=== PATIENT | female | born 1960 | race Caucasian/White ===

== ENCOUNTER 2023-12-31 19:30 | Emergency (ER) | payer OTHER ==
[2023-12-31] MEDS ORDERED: HYDROCODONE/APAP 5/325 MG TAB ONE ×2 (20:17→20:55)
--- NOTE | 2023-12-31 20:57 | RAD REPORT ---
EXAM DESCRIPTION: RAD - Ankle Left 3 View -12/31/2023 8:44 pm CLINICAL HISTORY: Left ankle pain status post injury FINDINGS: Soft tissue swelling lateral malleolus. Curvilinear lucency within the lateral malleolus probably a nondisplaced fracture. Prominent trabecul a considered somewhat less likely No dislocation
--- NOTE | 2023-12-31 20:58 | ER ---
Nurse's Notes [facility] Name: Rosaura Pro Age: 63 yrs Sex: Female : 1960 Arrival Date: 12/31/2023 Time: 19:30 Bed 9 Private MD: Diagnosis: Right patella fracture, ground-level fall, left ankle sprain Presentation: 12/30 19:46 Chief complaint: Patient states: pt had a trip and fall today while holding her dog. pt as6 c/o right knee pain and left ankle pain. Coronavirus screen: At this time, the client does not indicate any symptoms associated with coronavirus-19. Ebola Screen: No symptoms or risks identified at this time. Initial Sepsis Screen: Does the patient meet any 2 criteria? No. Patient's initial sepsis screen is negative. Does the patient have a suspected source of infection? No. Patient's initial sepsis screen is negative. Risk Assessment: Do you want to hurt yourself or someone else? Patient reports no desire to harm self or others. Onset of symptoms was December 31, 2023. 19:46 Acuity: YO 4 as6 19:46 Method Of Arrival: Wheelchair as6 Historical: - Allergies: 19:48 Codeine; as6 - PMHx: 19:48 Diverticulitis; High Cholesterol; Hypertension; as6 - PSHx: 19:48 kidney (Hypertension); section; Cholecystectomy; as6 - Immunization history:: Adult Immunizations up to date. - Infectious Disease History:: Denies. - Social history:: Smoking status: Patient denies any tobacco usage or history of. Screenin:26 [facility] ED Fall Risk Assessment (Adult) History of falling in the last 3 months, nj1 including since admission Yes- single mechanical fall (1 pt) Confusion or Disorientation No (0 pts) Intoxicated or Sedated No (0 pts) Impaired Gait Yes (1 pt) Mobility Assist Device Used Yes (1 pt) Altered Elimination No (0 pt) Score/Fall Risk Level 3 or more points = High Risk Oriented to surroundings, Maintained a safe environment, Hourly rounding (assess needs \T\ fall precautionary measures) done. Abuse screen: Denies threats or abuse. Denies injuries from another. Nutritional screening: No deficits noted. Tuberculosis screening: No symptoms or risk factors identified. Assessment: 20:15 General: Appears in no apparent distress. uncomfortable, Behavior is calm, cooperative, nj1 appropriate for age. 20:15 Pain: Complains of pain in right knee and left lateral ankle Pain currently is 4 out of nj1 10 on a pain scale. Aggravated by increased activity, repositioning, weight bearing. Neuro: Level of Consciousness is awake, alert, obeys commands, Oriented to person, place, time, situation. Cardiovascular: Patient's skin is warm and dry. Respiratory: Airway is patent Respiratory effort is even, unlabored. Musculoskeletal: Reports pain in right knee and left lateral ankle. Musculoskeletal: Swelling present in right knee and left lateral ankle. Injury Description: Abrasion sustained to right knee. 21:15 Reassessment: Patient appears in no apparent distress at this time. Patient and/or jb4 family updated on plan of care and expected duration. Pain level reassessed. Patient is alert, oriented x 3, equal unlabored respirations, skin warm/dry/pink. D/c pending ride home. 22:58 Reassessment: Patient appears in no apparent distress at this time. Patient and/or jb4 family updated on plan of care and expected duration. Pain level reassessed. Patient is alert, oriented x 3, equal unlabored respirations, skin warm/dry/pink. verbalized and demonstrated understanding of crutch training. Vital Signs: 19:46 BP 186 / 82; Pulse 78; Resp 18; Temp 97.6; Pulse Ox 98% ; Weight 74.84 kg; Height 5 ft. as6 4 in. ; Pain 4/10; 19:46 Body Mass Index 28.32 (74.84 kg, 162.56 cm) as6 19:46 Pain Scale: Adult as6 ED Course: 19:32 Patient arrived in ED. jj6 19:46 Arm band placed on right wrist. as6 19:48 Triage completed. as6 20:00 Rajesh Bone MD is Attending Physician. sp3 20:14 Veronica Lopes, LAUREN is Primary Nurse. nj1 20:28 Patient has correct armband on for positive identification. Bed in low position. Call nj1 light in reach. Provided Education on: call light, fall precautions. 20:45 Knee Right 3 View XRAY In Process Unspecified. EDMS 20:46 Ankle Left 3 View XRAY In Process Unspecified. EDMS 20:55 Notified ED physician of other Pt complaining of nausea. nj1 20:57 Osito Johnson MD is Referral Physician. sp3 21:07 Report given to Wicho AGUILAR. nj1 22:58 No provider procedures requiring assistance completed. Patient did not have IV access jb4 during this emergency room visit. Administered Medications: 20:23 Drug: [place] PO 5 mg-325 mg 2 tabs PO once {Note: One tablet given, patient does not nj1 want second one.} Route: PO; 21:11 Drug: Ondansetron Oral Disintegrating Tablet Oral Disintegrating Tablet 4 mg PO once nj1 Route: PO; 22:21 Drug: Ketorolac IM 30 mg IM once Route: IM; Site: right deltoid; as6 Medication: 22:58 VIS not applicable for this client. jb4 Outcome: 20:58 Discharge ordered by . sp3 22:58 Discharged to home via wheelchair, with crutches, jb4 22:58 Condition: stable 22:58 Discharge instructions given to patient, Instructed on discharge instructions, follow up and referral plans. medication usage, crutch walking, wound care, Demonstrated understanding of instructions, follow-up care, medications, wound care, Prescriptions given X 1, 23:00 Patient left the ED. jb4 Signatures: Dispatcher [employer] EDFL Teo Cortez RN RN jb4 Rajesh Bone MD MD sp3 Ruthie Monroyj6 Delio Rizzo RN RN as6 Veronica Lopes RN RN nj1 Corrections: (The following items were deleted from the chart) 21:07 20:23 [place] PO 5 mg-325 mg 2 tabs PO nj1 nj1
--- NOTE | 2023-12-31 20:58 | RAD REPORT ---
EXAM DESCRIPTION: RAD - Knee Right 3 View - 12/31/2023 8:44 pm CLINICAL HISTORY: Right knee pain status post injury FINDINGS: Comminuted fracture mid patella. Separation of fracture fragments 1.9 centimeter. No dislocation Small moderate joint effusion
--- NOTE | 2023-12-31 20:58 | EDPHYS ---
Physician Documentation [facility] Name: Rosaura Pro Age: 63 yrs Sex: Female : 1960 Arrival Date: 12/31/2023 Time: 19:30 Bed 9 Private MD: ED Physician Rajesh Bone HPI: 12/30 20:16 This 63 yrs old Female presents to ER via Wheelchair with complaints of Fall Injury, sp3 Knee Pain, Leg Pain. 20:16 63-year-old female with history diverticulitis, hyperlipidemia, hypertension presents sp3 with mechanical ground-level fall just prior to arrival while try to get into her motor home while holding her dog. Patient states she has pain to the right knee and left ankle with overlying abrasion to the right knee. She denies head injury, neck pain, back injury or pain, chest injury or pain, shortness of breath, other extremity pain, abdominal pain, or any other signs or symptoms on ROS at this time. She denies any medical prodrome prior to the event.. Historical: - Allergies: 19:48 Codeine; as6 - PMHx: 19:48 Diverticulitis; High Cholesterol; Hypertension; as6 - PSHx: 19:48 kidney (Hypertension); section; Cholecystectomy; as6 - Immunization history:: Adult Immunizations up to date. - Infectious Disease History:: Denies. - Social history:: Smoking status: Patient denies any tobacco usage or history of. ROS: 20:17 Constitutional: Negative for fever, chills, and weight loss, Eyes: Negative for injury, sp3 pain, redness, and discharge, Neck: Negative for injury, pain, and swelling, Cardiovascular: Negative for chest pain, palpitations, and edema, Respiratory: Negative for shortness of breath, cough, wheezing, and pleuritic chest pain, Abdomen/GI: Negative for abdominal pain, nausea, vomiting, diarrhea, and constipation, Back: Negative for injury and pain, Skin: Negative for injury, rash, and discoloration, Neuro: Negative for headache, weakness, numbness, tingling, and seizure, Psych: Negative for depression, anxiety, suicide ideation, homicidal ideation, and hallucinations, Allergy/Immunology: Negative for hives, rash, and allergies, Endocrine: Negative for neck swelling, polydipsia, polyuria, polyphagia, and marked weight changes, Hematologic/Lymphatic: Negative for swollen nodes, abnormal bleeding, and unusual bruising, 20:17 All other systems are negative, Exam: 20:17 Constitutional: This is a well developed, well nourished patient who is awake, alert, sp3 and in no acute distress. Head/Face: Normocephalic, atraumatic. Neck: Trachea midline, no thyromegaly or masses palpated, and no cervical lymphadenopathy. Supple, full range of motion without nuchal rigidity, or vertebral point tenderness. No Meningismus. Chest/axilla: Normal chest wall appearance and motion. Nontender with no deformity. No lesions are appreciated. Cardiovascular: Regular rate and rhythm with a normal S1 and S2. No gallops, murmurs, or rubs. Normal PMI, no JVD. No pulse deficits. Respiratory: Lungs have equal breath sounds bilaterally, clear to auscultation and percussion. No rales, rhonchi or wheezes noted. No increased work of breathing, no retractions or nasal flaring. Abdomen/GI: Soft, non-tender, with normal bowel sounds. No distension or tympany. No guarding or rebound. No evidence of tenderness throughout. Back: No spinal tenderness. No costovertebral tenderness. Full range of motion. Skin: Warm, dry with normal turgor. Normal color with no rashes, no lesions, and no evidence of cellulitis. Neuro: Awake and alert, GCS 15, oriented to person, place, time, and situation. Cranial nerves II-XII grossly intact. Motor strength 5/5 in all extremities. Sensory grossly intact. Cerebellar exam normal. Normal gait. Psych: Awake, alert, with orientation to person, place and time. Behavior, mood, and affect are within normal limits. 20:17 Musculoskeletal/extremity: Right knee demonstrates moderate-sized effusion with no drawer laxity and pain to palpation to the tibial tuberosity and medial and lateral sides of the knee. Distal neurovascular exam is normal. Left ankle has mild pain to the lateral malleolus and small amount of swelling. Neurovascular exam is normal.. Vital Signs: 19:46 BP 186 / 82; Pulse 78; Resp 18; Temp 97.6; Pulse Ox 98% ; Weight 74.84 kg; Height 5 ft. as6 4 in. ; Pain 4/10; 19:46 Body Mass Index 28.32 (74.84 kg, 162.56 cm) as6 19:46 Pain Scale: Adult as6 MDM: 20:01 Patient medically screened. sp3 20:18 Data reviewed: vital signs, nurses notes, radiologic studies. ED course: 63-year-old sp3 with mechanical ground-level fall. Differential diagnosis includes fracture versus contusion versus sprain of the left ankle and right knee. Will obtain x-rays and if negative put a knee immobilizer on the right knee along with crutches. Follow-up with orthopedics is already in place as patient made an appointment earlier today for Saturday.. 20:57 ED course: X-ray demonstrates patella fracture. Will place knee immobilizer and sp3 discharge patient home on crutches with follow-up with Dr. Johnson on her already scheduled appointment. Tramadol for pain control will also be given.. 12/30 20:01 Order name: Knee Right 3 View XRAY; Complete Time: 20:59 sp3 12/30 20:01 Order name: Ankle Left 3 View XRAY; Complete Time: 20:59 sp3 12/30 20:48 Order name: Knee Immobilizer; Complete Time: 22:04 sp3 12/30 20:48 Order name: Crutch Training; Complete Time: 22:58 sp3 12/30 20:48 Order name: Wound Care; Complete Time: 22:05 sp3 Administered Medications: 20:23 Drug: [place] PO 5 mg-325 mg 2 tabs PO once {Note: One tablet given, patient does not nj1 want second one.} Route: PO; 21:11 Drug: Ondansetron Oral Disintegrating Tablet Oral Disintegrating Tablet 4 mg PO once nj1 Route: PO; 22:21 Drug: Ketorolac IM 30 mg IM once Route: IM; Site: right deltoid; as6 Disposition Summary: 12/31/23 20:58 Discharge Ordered Notes: Location: Home sp3 Condition: Stable sp3 Diagnosis - Right patella fracture, ground-level fall, left ankle sprain sp3 Followup: sp3 - With: Osito Johnson MD - When: Upon discharge from the Emergency Department - Reason: Re-evaluation by your physician Discharge Instructions: - Discharge Summary Sheet sp3 - Crutch Use, Adult sp3 - Patellar Fracture, Adult sp3 Forms: - Medication Reconciliation Form sp3 - Antibiotic Education sp3 - Prescription Opioid Use sp3 - Patient Portal Instructions sp3 - Leadership Thank You Letter sp3 Prescriptions: - Tramadol 50 mg Oral Tablet - take 1 tablet ORAL route every 8 hours as needed; 12 tablet; Refills: 0, sp3 Product Selection Permitted Signatures: Dispatcher [employer] Rajesh Farias MD MD sp3 Delio Rizzo RN RN as6 Veronica Lopes RN RN nj1
[2023-12-31] MEDS ORDERED: ONDANSETRON 4 MG (ODT) TAB ONE (21:06)
[2023-12-31] MEDS ORDERED: KETOROLAC 30 MG/ML INJ ONE (22:18)
[2023-12-31 23:09] VITALS: BP 186/82; TEMP 97.6; O2SAT 98
== END 2023-12-31 23:00 | disposition home or self-care (01) ==
LOC: ER 19:30
DX: S82.041A Displaced comminuted fracture of right patella, initial encounter for closed fracture (principal); S93.402A Sprain of unspecified ligament of left ankle, initial encounter; W18.30XA Fall on same level, unspecified, initial encounter
CPT/HCPCS: 73562; 73610; Q0162

== ENCOUNTER → 2024-01-08 | Day surgery (SDC) | payer OTHER ==
[2024-01-07 10:37] LABS: Absolute Eosinophils 0.2 K/uL (0-0.5); Absolute Lymphocytes (CBC) 1.8 K/uL (0.7-4.9); Absolute Monocytes 0.4 K/uL (0.1-1.3); Absolute Neutrophil 2.9 K/uL (1.8-8.0); Basophils % 0.7 % (0-1.3); Eosinophils % 3.2 % (0-4.4); Hematocrit 39.7 % (36.0-45.0); Hemoglobin 13.2 g/dL (12.0-15.0); Lymphocytes % 34.3 % (15.3-44.8); MCH 32.3 pg (27.0-35.0); MCHC 33.3 g/dL (32.0-36.0); MCV 96.9 fL (80-100); MPV 7.3 fL (7.6-11.3); Monocytes % 7.4 % (3.3-12.3); Neutrophils % 54.4 % (41.7-73.7); Platelets 296 thou/uL (152-406); Red Cell Distribution Width 12.9 % (12.1-15.2)
[2024-01-07 10:51] LABS: Anion Gap 6.7 mEq/L (5.0-15.0); Potassium 3.7 mEq/L (3.5-5.1)
--- NOTE | 2024-01-09 16:11 | EKG ---
Test Date: 2024-01-07 Test Time: 10:16:47 Thermometer Maker: HIREN MEASUREMENT RESULTS: Intervals: Rate: 75 HI: 168 QRSD: 88 QT: 366 QTc: 408 [place]: P: 67 HI: 168 QRS: 57 T: 70 INTERPRETIVE STATEMENTS: Normal sinus rhythm Septal infarct, age undetermined Abnormal ECG No previous ECG available for comparison Electronically Signed On 01-09-24 16:08:53 CDT by Geovany Rodrigues
== END ==
LOC: OR 09:24
PROVIDERS: ATTEND Orthopaedic Surgery
DX: S82.001A Unspecified fracture of right patella, initial encounter for closed fracture (principal); Z53.09 Procedure and treatment not carried out because of other contraindication
CPT/HCPCS: 36415; 80048; 85025; 93005

== ENCOUNTER 2024-03-13 06:25 | Day surgery (SDC) | payer OTHER ==
[2024-03-12 12:30] LABS: Absolute Eosinophils 0.2 K/uL (0-0.5); Absolute Lymphocytes (CBC) 2.7 K/uL (0.7-4.9); Absolute Monocytes 0.4 K/uL (0.1-1.3); Absolute Neutrophil 2.3 K/uL (1.8-8.0); Basophils % 0.6 % (0-1.3); Eosinophils % 3.6 % (0-4.4); Hematocrit 40.6 % (36.0-45.0); Hemoglobin 13.4 g/dL (12.0-15.0); Lymphocytes % 46.8 % (15.3-44.8); MCH 32.6 pg (27.0-35.0); MCV 98.7 fL (80-100); MPV 7.5 fL (7.6-11.3); Monocytes % 7.8 % (3.3-12.3); Neutrophils % 41.2 % (41.7-73.7); Platelets 258 thou/uL (152-406); RBC Red Blood Cell Count 4.11 M/uL (3.86-4.86); Red Cell Distribution Width 13.1 % (12.1-15.2)
[2024-03-12 12:47] LABS: Anion Gap 8.3 mEq/L (5.0-15.0); Potassium 4.3 mEq/L (3.5-5.1)
[2024-03-13] MEDS: Ringers Lactate 1,000 ML IV ONE (06:51)
[2024-03-13] MEDS ORDERED: FENTANYL CITR 100 MCG/2 ML ONE (06:54)
[2024-03-13] MEDS ORDERED: dexAMETHasone 10 MG/ML VIAL ONE ×2 (06:54→08:10)
[2024-03-13] MEDS ORDERED: LIDOCAINE 1% MPF 5 ML VIAL ONE ×2 (06:54→12:07)
[2024-03-13] MEDS ORDERED: EPINEPHRINE 1 MG/ML VIAL ONE ×2 (06:55→12:07)
[2024-03-13] MEDS ORDERED: MIDAZOLAM HCL 2 MG/2 ML INJ ONE ×2 (06:55→12:08)
[2024-03-13] MEDS ORDERED: LIDOCAINE 2% MPF 5 ML VIAL ONE (08:10)
[2024-03-13] MEDS ORDERED: propofoL 200 MG/20 ML VIAL IV ONE (08:10)
[2024-03-13] MEDS ORDERED: KETOROLAC 30 MG/ML INJ ONE (08:10)
[2024-03-13] MEDS ORDERED: ONDANSETRON 4 MG/2 ML VIAL ONE (08:10)
[2024-03-13] MEDS: CEFAZOLIN SODIUM 1 GM/VIAL ONE (08:30)
[2024-03-13] MEDS ORDERED: NS 0.9% VIAL 10 ML ONE ×2 (08:44→08:45)
[2024-03-13] MEDS: HYDROMORPHONE HCL 1 MG/ML INJ ONE (10:05)
[2024-03-13] MEDS: FENTANYL CITR 100 MCG/2 ML ONE (10:18)
[2024-03-13] MEDS: ONDANSETRON 4 MG/2 ML VIAL ONE (10:18)
[2024-03-13] MEDS ORDERED: HYDROCODONE/APAP 10/325 TAB ONE (10:46)
[2024-03-13] MEDS: HYDROCODONE/APAP 10/325 TAB PO ONE (10:55)
[2024-03-13] MEDS ORDERED: dexAMETHasone 4 MG/ML VIAL ONE (12:13)
[2024-03-13 16:49] VITALS: O2SAT 99
[2024-03-13 17:07] VITALS: BP 138/71; TEMP 98.1
--- NOTE | 2024-03-13 20:57 | OP ---
Date of Procedure: 03/13/2024 Surgeon: Osito Johnson MD Preoperative Diagnosis: Right patellar re-fracture with retained hardware. Postoperative Diagnosis: Right patellar re-fracture with retained hardware. Procedure: Right patellar hardware removal with partial patellectomy and repair of extensor mechanis m. Estimated Blood Loss: 20 cc. Complications: There were no complications. Specimens: No pathology specimens sent. Indications For Operation: Ms. Pro is a 64-year-old, who unfortunately sustained a transverse patellar fracture, which was treated approximately 8 weeks ago with open reduction and internal fixat ion using tension band wire technique. She did extremely well. She had near full range of motion. She had no pain. X-rays looked ideal with reestablishment of the articular surface and was cleared f or light activities. She unfortunately approximately a week after being cleared, fell on her knee ag ain and she came to see me in my office. X-rays were taken which demonstrated that she had refractur ed her patella and that the hardware had lost fixation because of fracture of the inferior pole. It was assumed that the inferior pole was highly comminuted and discussed with her risks, benefits, and alternatives of different methods of treating this including continued closed treatment, but she had very poor ability to perform a straight leg raise and the fracture fragments were displaced. Also, s he had retained hardware, which was not providing any fixation. Therefore, decision was made jointly to proceed with hardware removal and repair of the extensor mechanism probably to include partial pa tellectomy as it appears that the wires have broken out from the inferior pole of the patella. She s ays she understands everything as presented and knows that this is not the optimal way of fixing sebastian lla, but I think this is our option at this time, and she agrees to proceed. Description Of Procedure: The patient was taken to the operating room, placed in supine position. G eneral anesthesia was easily obtained by Anesthesia staff. Following this, a well-padded tourniquet was placed on superior right thigh. Right lower extremity was then prepped and draped in the usual s terile fashion for the procedure. Following this, the superior pole of patella is compressed as the knee is flexed fully and the tourniquet was raised. The previous incision was used with slightly mor e extensile superiorly and inferiorly. This led down to the scar tissue and great care was made to r etain full-thickness flaps of the soft tissues off the anterior surface of the patella. There was he matoma in this area demonstrated a new fracture as well as a slight rent in the medial soft tissue st ructures. The wires were more or less immediately visible inferiorly. The fracture site was examine d and cleaned using a combination of knife and rongeur. That allowed us to see the remainder of the wire. The wire was then cut at the knot and pulled through leaving the pins in place. The remainder of the superior pole fracture site was cleaned. The inferior fragments were identified. There were at least 2 fracture lines which essentially paralleled the inferior pins. There did not appear to b e any way of fixating this back to the superior pole. Therefore, decision was made to excise these i nferior pole fragments. There was very little articular cartilage on these fragments. After this marshall d been completely cleaned and the patellar ligament had been cleaned, a #5 FiberWire was then placed extensively in the patellar tendon. This was done with 2 strands of FiberWire basically leaving 4 fr ee ends arranged from the lateral aspect of the patellar tendon, 2 central as well as 1 medial. Afte r this, the inferior aspect of the pins were cut, which allowed for very easy placement of the most m edial and lateral FiberWires through the previously drilled holes for the pins. An additional hole w as then drilled centrally and the 2 central FiberWire strands were then placed through the central ho le. Care was taken to ensure that these FiberWire strands were strong enough to extend the knee from pulling on it without damaging the patellar tendon and definitely without losing purchase. The Fibe rWire strands were then tied at the superior aspect of the patella over these 2 newly-created bone tu nnels and bone bridges. After this, the knee was then bent to 60 degrees with no gapping. The small rent in the medial soft tissues was closed using heavy Vicryl sutures. The wound was copiously irri gated and the skin was closed using 2-0 Vicryl followed by pam. It was then placed in an extreme ly well-padded sterile dressing as well as a knee immobilizer with a posterior slab. The patient is awakened and taken to recovery room in good condit ion. There were no complications. /ARIADNA Voice ID: [id number] Report ID: [id number]
== END 2024-03-13 14:10 | disposition home or self-care (01) ==
LOC: OR 06:25
PROVIDERS: ATTEND Orthopaedic Surgery
PROC: 0SPC04Z Removal of Internal Fixation Device from Right Knee Joint, Open Approach (ICD-10-PCS; 2024-03-13)
PROC: 0QBD0ZZ Excision of Right Patella, Open Approach (ICD-10-PCS; principal; 2024-03-13 08:30)
DX: S82.041 Displaced comminuted fracture of right patella (principal)
CPT/HCPCS: 20680; 85025; 80048; 36415; 27524; A4216 ×2; J2704; J1100 ×3; J2001 ×3; J2250; J3010 ×2; J0171 ×2; J1170; J2405 ×2; J7120; J0690